=== PATIENT | male | born 1980 | race Caucasian/White ===

== ENCOUNTER 2023-10-29 18:03 | Emergency (ER) | payer BC ==
[2023-10-29] MEDS: Take Home: Lidocaine 2% Viscous Solution 15 ML UD, 2 Cup Pack PO ONE (21:11)
[2023-10-29] MEDS: Take Home: Amoxicillin/Clavulanate K 875-125 MG Tab, 6 Tab Pack PO ONE (21:11)
== END 2023-10-29 21:24 | disposition home or self-care (01) ==
LOC: MERGE 18:03 → DL.ED 18:03
DX: K02.9 Dental caries, unspecified (principal); I10 Essential (primary) hypertension; E03.9 Hypothyroidism, unspecified; F17.210 Nicotine dependence, cigarettes, uncomplicated; Z79.899 Other long term (current) drug therapy
CPT/HCPCS: 99282; 99283; A9270-GY

== ENCOUNTER 2025-07-08 10:30 | Emergency (ER) | payer OTHER | END 2025-07-08 11:03 | disposition home or self-care (01) | LOC: DL.ED 10:30 | DX: K04.7 Periapical abscess without sinus (principal); I10 Essential (primary) hypertension; E03.9 Hypothyroidism, unspecified; Z79.890 Hormone replacement therapy; Z79.899 Other long term (current) drug therapy | CPT/HCPCS: 99282; 99283 ==